=== PATIENT | female | born 1970 | race Caucasian/White ===

== ENCOUNTER 2017-12-02 09:29 | Emergency (ER) | payer SELFPAY, OTHER ==
[~2017-12-02 09:29] MED LIST: CA CHLORIDE 10% 10 ML SYRINGE; EPINEPHrine 0.1 MG/ML SYG; ETOMIDATE 20 MG INJ; NA BICARBONATE 8.4% 50 ML SYG; NORepinephrine 8MG/250 ML BAG; SUCCINYLCHOLINE CHLORIDE 100 MG/5 ML SYG IV
[2017-12-02] MEDS ORDERED: ASPIRIN 300 MG SUPP PR (09:38)
[2017-12-02] MEDS ORDERED: NORepinephrine 8MG/250 ML (PMX 250 ML IV (09:44)
[2017-12-02] MEDS ORDERED: PIPER-TAZO 3.375 GM IV (PMX) 100 ML IVPB (09:44)
[2017-12-02] MEDS ORDERED: SODIUM CHLORIDE 0.9% 1L BAG IV* (09:44)
[2017-12-02] MEDS ORDERED: VANCOMYCIN 1 GM (PMX) 250 ML IVPB (10:00)
== END 2017-12-02 17:09 | disposition expired ==
LOC: E/R 09:29
DX: I46.9 Cardiac arrest, cause unspecified (principal); R40.2122 Coma scale, eyes open, to pain, at arrival to emergency department; R40.2362 Coma scale, best motor response, obeys commands, at arrival to emergency department
CPT/HCPCS: 31500; 82962; 92950; 93005; 94002; 99285-25